=== PATIENT | female | born 1935 | race Caucasian/White ===

== ENCOUNTER → 2016-02-28 | Outpatient (CLI) | payer MEDICARE, BC | END | disposition home or self-care (01) | LOC: PCVCCLINIC 14:27 | PROVIDERS: ATTEND Internal Medicine | DX: I48.91 Unspecified atrial fibrillation (principal); J84.10 Pulmonary fibrosis, unspecified; I10 Essential (primary) hypertension; E78.5 Hyperlipidemia, unspecified | CPT/HCPCS: 93005; G0463 ==

== ENCOUNTER → 2016-03-24 | Outpatient (CLI) | payer MEDICARE, BC | END | disposition home or self-care (01) | LOC: PCVCCLINIC 15:25 | PROVIDERS: ATTEND Internal Medicine | DX: I48.2 Chronic atrial fibrillation (principal); I10 Essential (primary) hypertension; J84.10 Pulmonary fibrosis, unspecified; E78.5 Hyperlipidemia, unspecified; I27.2 Other secondary pulmonary hypertension | CPT/HCPCS: 93005; G0463 ==